=== PATIENT | female | born 1990 | race Caucasian/White ===

== ENCOUNTER → 2021-02-15 | Outpatient (REF) | payer OTHER ==
[2021-02-15 17:29] LABS: HEMOGLOBIN 10.5 g/dl (12.0-15.5); MEAN CORPUSCULAR HEMOGLOBIN 29.7 pg (27.0-33.0); MEAN CORPUSCULAR HGB CONC 32.8 g/dl (32.0-36.5); MEAN CORPUSCULAR VOLUME 90.7 fl (80.0-96.0); PLATELET COUNT, AUTOMATED 165 10^3/uL (150-450); RED BLOOD COUNT 3.53 10^6/uL (4.00-5.40); WHITE BLOOD COUNT 8.2 10^3/uL (4.0-10.0)
== END ==
LOC: M PLALAB 13:59
PROVIDERS: ATTEND Advanced Practice Midwife
DX: Z36.89 Encounter for other specified antenatal screening (principal); Z3A.28 28 weeks gestation of pregnancy
CPT/HCPCS: 36415; 82950; 85027; 86850; 86900; 86901; J2790

== ENCOUNTER → 2021-02-21 | Outpatient (CLI) | payer OTHER | LOC: M LAB 08:35 | DX: Z34.83 Encounter for supervision of other normal pregnancy, third trimester (principal); Z36.89 Encounter for other specified antenatal screening ==

== ENCOUNTER → 2021-03-01 | Outpatient (REF) | payer OTHER | LOC: M SFHCWAGY 15:04 | PROVIDERS: ATTEND Advanced Practice Midwife | DX: O47.00 False labor before 37 completed weeks of gestation, unspecified trimester (principal) | CPT/HCPCS: 82731; 87210; 90384; 96372; G0463 ==

== ENCOUNTER → 2021-03-02 | Outpatient (CLI) | payer OTHER ==
--- NOTE | 2021-03-02 10:44 | REP ---
INDICATION: CERVICAL LENGTH/ENRIQUE 05/03/21 COMPARISON: None. TECHNIQUE: Transabdominal obstetrical ultrasound with color Doppler evaluation. FINDINGS: Examination demonstrates a single live intrauterine in cephalic presentation. motion is identified by technologist. Placenta is noted anterior and grade 1 without evidence for placenta previa or abruption. Amniotic fluid volume is normal. Cervix measures 3.8 cm in length and appears closed. CHRISTINA: 15.2 cm FHR: 144 beats per minute IMPRESSION: Single live intrauterine in cephalic presentation. Cervix measures 3.8 cm in length and appears closed. <Electronically signed by Azar Jerry > 03/02/21 1043
== END ==
LOC: M WHC 09:54
PROVIDERS: ATTEND Advanced Practice Midwife
DX: O09.213 Supervision of pregnancy with history of pre-term labor, third trimester (principal); Z3A.31 31 weeks gestation of pregnancy

== ENCOUNTER 2021-03-26 16:03 | Outpatient (CLI) | payer OTHER ==
[~2021-03-26] VITALS: Ht 162.6 cm; Wt 70.9 kg
[2021-03-26 16:22] VITALS: BP 121/80
--- NOTE | 2021-03-26 17:58 | IPNPDOC ---
Text Note Date of Service The patient was seen on 03/26/21. NOTE L&D Triage Note: S: 30yo at 34w4d presents with n/v all day. She denies f/c or dysuria, vaginal bleeding, LOF or reg ctx. O: vss, AF gen: well appearing abd: gravid, nttp - Patient was able to tolerate 1lter of oral hydration A/P: 30yo at 34w4d with n/v, now resolved Reassuring status -zofran rx filled. Tara Cueto MD VS,Nighat, I+O VS, Nighat, I+O Vital Signs Date Time Temp Pulse Resp B/P (MAP) Pulse Ox O2 Delivery O2 Flow Rate FiO2 03/26/21 16:22 98.7 95 18 121/80 (94) TARA CUETO MD. Mar 26, 2021 17:58
== END 2021-03-26 17:55 | disposition home or self-care (01) ==
LOC: M LDO 16:03
PROVIDERS: ATTEND Obstetrics & Gynecology
DX: O21.8 Other vomiting complicating pregnancy (principal); Z3A.34 34 weeks gestation of pregnancy; Z88.0 Allergy status to penicillin; Z79.899 Other long term (current) drug therapy
CPT/HCPCS: 59025; 76815; G0378; G0463

== ENCOUNTER → 2021-04-12 | Outpatient (REF) | payer OTHER ==
[~2021-04-12] MED LIST: CALC500C15 PO; IRON240T PO; PRENTAB9 PO
== END ==
LOC: M SFHCWAGY 12:57
PROVIDERS: ATTEND Advanced Practice Midwife
DX: Z34.83 Encounter for supervision of other normal pregnancy, third trimester (principal); Z36.85 Encounter for antenatal screening for Streptococcus B; Z3A.37 37 weeks gestation of pregnancy
CPT/HCPCS: 59025; 87081; 87186; G0463

== ENCOUNTER 2021-04-18 11:07 | Outpatient (CLI) | payer OTHER ==
[~2021-04-18] VITALS: Ht 162.6 cm; Wt 73.8 kg
[2021-04-18 11:30] VITALS: BP 118/81
[2021-04-18] MEDS ORDERED: PRENTAB9 PO (11:33)
[2021-04-18] MEDS ORDERED: IRON240T PO (11:33)
[2021-04-18] MEDS ORDERED: HOME MED LIST COMPLETE! XX SCH (11:35)
[2021-04-18 12:03] VITALS: BP 108/63
== END 2021-04-18 12:05 | disposition home or self-care (01) ==
LOC: M LDO 11:07
PROVIDERS: ATTEND Obstetrics & Gynecology
DX: O26.893 Other specified pregnancy related conditions, third trimester (principal); N89.8 Other specified noninflammatory disorders of vagina; Z3A.37 37 weeks gestation of pregnancy; Z88.0 Allergy status to penicillin
CPT/HCPCS: 59025; 76815; G0378; G0463

== ENCOUNTER 2021-04-26 07:28 | Inpatient (IN) | payer OTHER ==
[~2021-04-26] VITALS: Ht 162.6 cm; Wt 74.7 kg
[2021-04-26] VITALS (31 sets, daily range): BP systolic 96–150; BP diastolic 52–107
[~2021-04-26 07:28] MED LIST changes: -CALC500C15 PO
[2021-04-26] MEDS ORDERED: CALC500C15 PO (07:55)
[2021-04-26] MEDS ORDERED: ceFAZolin SOD 2 GM in IV 1 EA IV STA (08:26)
[2021-04-26] MEDS ORDERED: OXYTOCIN INJ 10 UNITS/ML VIAL (J2590) IM PRN (08:30)
[2021-04-26] MEDS ORDERED: miSOPROStol 50MCG 1/2 TABLET PO ONE (08:30)
[2021-04-26] MEDS ORDERED: OXYTOCIN DRIP 30 UNITS in IV 1 EA IV PRN ×4 (08:30)
[2021-04-26] MEDS ORDERED: METHYLERGONOVINE MALEATE 0.2 MG/ML VIAL (J2210) IM PRN (08:30)
[2021-04-26] MEDS ORDERED: LIDOCAINE 1% MDV 20ML VIAL INFIL PRN (08:30)
[2021-04-26] MEDS ORDERED: CALCIUM CARBONATE 500 MG CHEW U/D PO PRN (08:35)
[2021-04-26 09:00] LABS: HEMATOCRIT 29.2 % (36.0-47.0); HEMOGLOBIN 9.5 g/dl (12.0-15.5); MEAN CORPUSCULAR HEMOGLOBIN 26.8 pg (27.0-33.0); MEAN CORPUSCULAR HGB CONC 32.5 g/dl (32.0-36.5); MEAN CORPUSCULAR VOLUME 82.5 fl (80.0-96.0); PLATELET COUNT, AUTOMATED 182 10^3/uL (150-450); RED BLOOD COUNT 3.54 10^6/uL (4.00-5.40); WHITE BLOOD COUNT 7.8 10^3/uL (4.0-10.0)
--- NOTE | 2021-04-26 10:45 | HPE ---
HISTORY AND PHYSICAL DATE OF ADMISSION: 04/26/2021 Chloé is a 5, para 2-1-1-3 at 39 weeks gestation with an EDC of 05/03/2021 based on last menstrual period. She presents to Labor and Delivery today for induction of labor due to social reasons. She does report some irregular contractions that have been on and off for the last week. Denies vaginal bleeding and leakage of fluid. The fetus has been active. [place] care [place] with transfer of care to [facility] at 29 weeks gestation. Her course was complicated by a history of ADHD and anxiety. No current medications. OBSTETRIC HISTORY: 1. May 12, 2008, 38 weeks 7 pound 8 ounce female, vaginal delivery. No complications. 2. June 19, 2011, 38 weeks, 8 pound 7 ounce male, vaginal delivery. No complications. 3. December 30, 2014, 36 weeks, 6 pound 12 ounce male, vaginal delivery, delivery, spontaneous . OBSTETRIC LABORATORY DATA: A negative. Antibody screen negative. Rubella immune. Gonorrhea and chlamydia negative. Urine culture no growth. Hep B surface antigen negative. Syphilis nonreactive. HIV negative. Hepatitis C antibody nonreactive. Gestational diabetic screening abnormal at 143. Three hour glucose tolerance test normal at fasting 76, one hour 128, two hour 119, three hour 101. GBS is positive. PAST MEDICAL HISTORY: 1. Anxiety. 2. ADHD. PAST SURGICAL HISTORY: Breast implant and breast explant surgery. SOCIAL HISTORY: Nonsmoker. Denies alcohol and drug use. No history of sexually transmitted infections. Denies history of abuse, physical, sexual, and emotional. ALLERGIES: Penicillin which causes hives. FAMILY HISTORY: Noncontributory. CURRENT MEDICATIONS: 1. vitamin. 2. Tums p.r.n. PHYSICAL EXAMINATION: Temperature 98.3, pulse 89, respirations 18, BP 103/53. She is alert and oriented x3, smiling and talkative. No distress. heart rate is 150, moderate variability, positive accelerations, negative decelerations. Gravid, cephalic presentation. Estimated weight 7-1/2 pounds. Contractions are approximately every 8-11 minutes. Sterile vaginal exam: 2 cm dilated, 50% effaced, -3 station, posterior, soft, and no show with exam. ASSESSMENT: Intrauterine at 39 weeks. heart rate category 1. PLAN: Admit patient to Labor and Delivery. Routine laboratories. Out of bed ad.flako. Start antibiotics for GBS prophylaxis. I plan to give misoprostol 50 mcg p.o. for cervical ripening. Will likely start Pitocin IV for labor induction. Will likely augment her labor with assisted rupture of membranes. The patient currently says she does not want an epidural to cope with her labor. Regular diet at this time. The patient has been verbally consented for emergency surgery and blood products if they are necessary. I do anticipate cervical ripening, labor, and a vaginal delivery. This plan of care is made in consultation with Dr. Sherrie Tom. [facility] HEALTH SYSTEMBerenice
[2021-04-26] MEDS ORDERED: LR 1,000 ML IV SCH (13:30)
[2021-04-26] MEDS: OXYTOCIN DRIP 30 UNITS in IV 1 EA IV SCH ×8 (13:52→18:47)
[2021-04-26] MEDS: LR 1,000 ML IV SCH ×2 (13:53→19:53)
[2021-04-26] MEDS ORDERED: ceFAZolin SOD 1 GM in D5W MINI-BAG PLUS 50 ML IV SCH (17:00)
[2021-04-26] MEDS ORDERED: FENTANYL 2MCG/ML ROPIVACAINE 0.2% IN 0.9% NACL 100ML IVBAG As Ordered ONE (19:47)
[2021-04-26] MEDS ORDERED: METHYLERGONOVINE MALEATE 0.2 MG TAB PO PRN (21:40)
[2021-04-26] MEDS ORDERED: DIBUCAINE 1% OINTMENT 30GM TOP PRN (21:40)
[2021-04-26] MEDS ORDERED: MEASLES,MUMPS,RUBELLA VACCINE INJ (MMR-II) (90707) SC SCH (21:40)
[2021-04-26] MEDS ORDERED: DOCUSATE SODIUM 100MG CAPSULE PO PRN (21:40)
[2021-04-26] MEDS ORDERED: IBUPROFEN 600MG TAB PO PRN (21:40)
[2021-04-26] MEDS ORDERED: ACETAMINOPHEN TAB 650MG DOSE (2X325MG) PO PRN (21:40)
[2021-04-26] MEDS ORDERED: RHOGAM 300 MCG (1500 IU) INJ (J2790) IM SCH (21:40)
[2021-04-26] MEDS: ACETAMINOPHEN 500 MG TAB PO PRN (23:07)
[2021-04-27] MEDS: ACETAMINOPHEN 500 MG TAB PO PRN ×3 (05:18→21:46)
[2021-04-27 05:55] VITALS: BP 119/66
--- NOTE | 2021-04-27 07:44 | IPNPDOC ---
Text Note Date of Service The patient was seen on 04/27/21. NOTE Post note S: No concerns; feels well O: AVSS NAD Abd: NT, FF ext: NT A/p PPD#1 s/p Routine care Possible discharge today pending Pediatric assessment VS,Fishbone, I+O VS, Fishbone, I+O Laboratory Tests 04/26/21 08:36 Vital Signs Date Time Temp Pulse Resp B/P (MAP) Pulse Ox O2 Delivery O2 Flow Rate FiO2 04/27/21 05:55 98.6 68 16 119/66 (83) 98 Room Air I&O- Last 24 Hours up to 6 AM 04/27/21 06:00 Intake Total 1988.7 ml Output Total 1500 ml Balance 488.7 ml ZEHRA EDWARDS MD Apr 27, 2021 07:44
--- NOTE | 2021-04-27 08:02 | DN ---
DELIVERY NOTE DATE OF DELIVERY: 04/26/2021 TIME OF : GENDER: APGARS: LACERATIONS: ANESTHESIA: ESTIMATED BLOOD LOSS: 250 mL. COUNTS: DESCRIPTION OF DELIVERY: Chloé is a 30-year-old 5 para 3-1-1-4 now admitted to labor and delivery for induction of labor due to term . Misoprostol and IV Pitocin were used and labor did ensue. She did cope with her labor for physiologically with out-of-bed positions. She reached complete dilation at 2039. She pushed to a normal spontaneous vaginal delivery of a live male in OA position with restitution to LOT position at 2042 in the hands and knees position. There was a nuchal cord times one loose that was reduced manually at the time of delivery. The shoulders delivered with gentle downward traction and the corpus immediately followed. There was a true knot in the cord. There was a tear in the cord and the cord was immediately clamped. The was placed on the maternal abdomen crying and active. Mouth and nares was bulb suctioned. The spontaneous expulsion of an intact placenta with three-vessel cord by Serrano mechanism was at 2049. Uterine hemostasis achieved with IV Pitocin rapid infusion and uterine fundal massage. Estimated blood loss 250 mL. Perineum and vagina inspected and noted to have a first-degree midline laceration. Laceration was infiltrated with 1% lidocaine and repaired with 3-0 Vicryl Rapide in the usual fashion. The male weighed 3420 grams (7 pounds 9 ounces). Apgars were 8 and 9. Family have named him Vik and the mother plans to breast feed her son. At the close of delivery, lap counts, needle counts and instrument counts were correct and verified.
[2021-04-27] MEDS: PRENATAL VITAMINS CHEWABLE TABLET PO SCH (08:40)
[2021-04-27] MEDS: IBUPROFEN 800 MG TAB PO PRN ×2 (08:40→19:41)
[2021-04-27 18:01] VITALS: BP 119/71
[2021-04-28] MEDS: ACETAMINOPHEN 500 MG TAB PO PRN (05:33)
[2021-04-28 05:59] VITALS: BP 122/73
[2021-04-28] MEDS ORDERED: ACET-683 PO (07:13)
[2021-04-28] MEDS ORDERED: IBUP80TA PO (07:13)
[2021-04-28 09:00] VITALS: BP 122/73
[2021-04-28] MEDS: PRENATAL VITAMINS CHEWABLE TABLET PO SCH (09:07)
== END 2021-04-28 11:05 | disposition home or self-care (01) | DRG 807 ==
LOC: M LDI 07:28 → M OBS 22:30
PROVIDERS: ADMIT Advanced Practice Midwife; ATTEND Advanced Practice Midwife
PROC: 10E0XZZ Delivery of Products of Conception, External Approach (ICD-10-PCS; principal; 2021-04-26)
PROC: 3E0P7GC Introduction of Other Therapeutic Substance into Female Reproductive, Via Natural or Artificial Opening (ICD-10-PCS; 2021-04-26)
PROC: 0HQ9XZZ Repair Perineum Skin, External Approach (ICD-10-PCS; 2021-04-26)
DX: O99.824 Streptococcus B carrier state complicating childbirth (principal); Z37.0 Single live birth; Z3A.39 39 weeks gestation of pregnancy; O69.81X0 Labor and delivery complicated by cord around neck, without compression, not applicable or unspecified; O69.2XX0 Labor and delivery complicated by other cord entanglement, with compression, not applicable or unspecified; O70.0 First degree perineal laceration during delivery